=== PATIENT | male | born 1955 | race Caucasian/White ===

== ENCOUNTER 2023-02-27 11:13 | Emergency (ER) | payer OTHER, MEDICARE ==
[~2023-02-27] VITALS: Ht 180.3 cm; Wt 104.6 kg
[2023-02-27 11:42] LABS: BASOPHILS # (AUTO) 0.1 X10'3 (0-0.2); BASOPHILS % (AUTO) 1.5 % (0-1); EOSINOPHILS % (AUTO) 0.6 % (0-6); HEMATOCRIT 52.8 % (42.0-52.0); HEMOGLOBIN 16.6 g/dl (14.0-17.9); LYMPHOCYTES # (AUTO) 1.3 X10'3 (1.1-4.8); LYMPHOCYTES % (AUTO) 16.3 % (21-51); MEAN CORPUSCULAR HEMOGLOBIN 28.8 PG (27.0-31.0); MEAN CORPUSCULAR HGB CONC 31.5 g/dL (33.0-36.5); MEAN CORPUSCULAR VOLUME 91.6 FL (78-98); MEAN PLATELET VOLUME 7.9 FL (7.4-10.4); MONOCYTES # (AUTO) 0.9 X10'3 (0-0.9); MONOCYTES % (AUTO) 11.7 % (2-12); NEUTROPHILS # (AUTO) 5.6 X10'3 (1.8-7.7); NEUTROPHILS % (AUTO) 69.9 % (42-75); PLATELET COUNT 150 X10'3 (140-440); RED BLOOD COUNT 5.76 X10'6 (4.70-6.10); RED CELL DISTRIBUTION WIDTH 21.5 % (11.5-14.5)
[2023-02-27 11:45] VITALS: TEMP 97.8
[2023-02-27 12:15] LABS: PLATELET ESTIMATE NORMAL
[2023-02-27 12:16] LABS: ANISOCYTOSIS 3+
[2023-02-27 12:20] LABS: ALANINE AMINOTRANSFERASE 55 U/L (12-78); ALBUMIN 3.5 G/DL (3.4-5.0); ALKALINE PHOSPHATASE 92 IU/L (46-116); ANION GAP 10 (8-16); ASPARTATE AMINO TRANSFERASE 70 U/L (10-37); BILIRUBIN,TOTAL 0.6 MG/DL (0.1-1.0); BLOOD UREA NITROGEN 19 MG/DL (7-18); BUN/CREATININE RATIO 19.2 (10.0-20.0); CALCIUM 8.9 MG/DL (8.5-10.1); CHLORIDE 98 MMOL/L (99-107); CREATININE 0.99 MG/DL (0.60-1.10); GLUCOSE 108 MG/DL (70-104); POTASSIUM 4.2 MMOL/L (3.5-5.1); SODIUM 137 MMOL/L (135-145); TOTAL PROTEIN 7.1 G/DL (6.4-8.2); eCRCL 75 ML/MIN; eGFR 75 ML/MIN
[2023-02-27 12:27] LABS: PRO BRAIN NATRIURETIC PEPTIDE 42 PG/ML (0-125)
[2023-02-27] MEDS ORDERED: LORazepam 1 MG tablet PO ONE (14:35)
[2023-02-27] MEDS ORDERED: predniSONE 20 mg tablet PO ONE (14:35)
[2023-02-27] MEDS ORDERED: amox tr/potassium clavulanate 875/125mg TAB PO ONE (14:35)
[2023-02-27] MEDS ORDERED: PRED20TA PO (14:43)
[2023-02-27] MEDS ORDERED: AMOX-117 PO (14:43)
[2023-02-27] MEDS ORDERED: LORA-269 PO (14:43)
[2023-02-27 15:01] VITALS: BP 103/67; PULSE 59; RESP 18; O2SAT 97
== END 2023-02-27 15:03 | disposition home or self-care (01) ==
LOC: ER 11:13
DX: J32.9 Chronic sinusitis, unspecified (principal); F41.9 Anxiety disorder, unspecified; J44.9 Chronic obstructive pulmonary disease, unspecified; Z88.8 Allergy status to other drugs, medicaments and biological substances; Z79.2 Long term (current) use of antibiotics; Z79.899 Other long term (current) drug therapy
CPT/HCPCS: 36415; 71045; 80053; 83880; 84484; 85008; 85025; 93005; 99285; J7512